=== PATIENT | male | born 1995 | race African-American/Black ===

== ENCOUNTER 2016-11-06 12:30 | Day surgery (SDC) | payer BC ==
[2016-11-05 15:48] LABS: HEMATOCRIT 44.9 % (40.0-51.0); HEMOGLOBIN 15.6 g/dL (13.6-17.8)
--- NOTE | ~2016-11-06 | OP ---
Record Of Operation [facility] [address] [place]. [address] NAME: ALEJA KICTHEN III : 89 STATUS : [facility]#: [id number] AGE: 21 ADM/REG DATE : 11/06/16 MR#: [id number] REPORT SERV DATE: 11/06/16 DICTATED BY: ZAHIRA CERVANTES DATE: 11/06/16 REPORT STATUS : Draft TRANSCRIBED BY: TODD DATE: 11/06/16 DATE OF PROCEDURE: 11/06/2016 PREOPERATIVE DIAGNOSES: 1. Chronic tonsillitis. 2. Tonsil calculi. POSTOPERATIVE DIAGNOSES: 1. Chronic tonsillitis. 2. Tonsil calculi. PROCEDURE PERFORMED: Tonsillectomy. INDICATIONS: Aleja Kitchen is a 21-year-old male with history of chronic tonsillitis, tonsil calculi, and halitosis. I counseled him about the risks, benefits, and alternatives of this procedure. The risks include, but are not limited to pain, bleeding, infection, and scarring. I quoted him a 1% risk of postoperative bleeding and told him the commonest time for that is 7-10 days after surgery. He voiced an understanding of those risks and signed the consent form. I did question him about whether he is n.p.o. and he confirmed that he has not had anything to eat since midnight. PROCEDURE: Aleja was brought to the operating room and positioned on the table in supine manner. General endotracheal anesthesia was induced. The table was rotated 90 degrees. The patient was prepped and draped in the usual fashion. The Jeff-Adam mouth gag was placed. The superior pole of the right palatine tonsil was grasped with a tonsil tenaculum and the Bovie on a low setting of 8 was used to remove the tonsil from the tonsillar fossa. Additional hemostasis was obtained with the suction Bovie apparatus. This side was injected with 0.5% Marcaine without epinephrine and then painted with the bismuth subgallate solution. The left tonsil was removed in a manner similar to the right. A tube was passed into the stomach, and stomach contents were suctioned, which were few. The oral cavity was thoroughly irrigated, and all of the saline and residual clots were removed. No additional bleeding was observed. The mouth gag was released and then retracted again but again no additional bleeding was observed. The mouth gag was then removed. The patient was cleaned up. He was returned to anesthesia control. He was extubated in the operating room and moved to the recovery room in good condition. FINDINGS: 1. Estimated blood loss 10 mL. 2. Total fluids given 400 mL of Ringer's lactate. 3. 3+ tonsillar hypertrophy with chronic inflammation and tonsil calculi. 4. Otherwise normal oral cavity and anatomy. JUAN/TODD Record Of [address] [address] NAME: ALEJA KITCHEN III : 89 STATUS : [facility] PAT#: [id number] AGE: 21 ADM/REG DATE : 11/06/16 MR#: [id number] REPORT SERV DATE: 11/06/16 DICTATED BY: ZAHIRA CERVANTES DATE: 11/06/16 REPORT STATUS : Draft TRANSCRIBED BY: TODD DATE: 11/06/16 Zahira Cervantes M.D. / [id number] CC: Zahira Cervantes M.D.
[~2016-11-06 12:30] MED LIST: *DENIES; BACDS PO; MYRAC100 MG
== END 2016-11-06 17:03 | disposition home or self-care (01) ==
LOC: SDC 12:30
PROVIDERS: Otolaryngology
PROC: 0C5PXZZ Destruction of Tonsils, External Approach (ICD-10-PCS; principal; 2016-11-06 13:45)
DX: J35.1 Hypertrophy of tonsils (principal); J35.8 Other chronic diseases of tonsils and adenoids; Z98.890 Other specified postprocedural states
CPT/HCPCS: 85014; 85018; 88304; A9270-GY; J0330; J2250; J2270; J2405; J3010